=== PATIENT | female | born 1990 | race American Indian/Alaskan Native ===

== ENCOUNTER 2019-03-04 09:25 | Outpatient (CLI) | payer BC ==
[2019-03-04 10:35] LABS: Hematocrit 38.8 % (30.3-42.9); Hemoglobin 13.5 gm/dl (10.1-14.3); Mean Corpuscular HGB Conc 35 % (30-34); Mean Corpuscular Volume 91 fl (79-97); Platelet Count 203 K/mm3 (140-440); Red Blood Count 4.27 M/mm3 (3.65-5.03); Red Cell Distribution Width 13.3 % (13.2-15.2)
[2019-03-04 10:41] LABS: Alanine Aminotransferase 11 units/L (7-56); Albumin 4.3 g/dL (3.9-5); BUN/Creatinine Ratio 25; Blood Urea Nitrogen 15 mg/dL (7-17); Calcium 9.3 mg/dL (8.4-10.2); Hemolysis Index 6
[2019-03-04 11:20] LABS: Erythrocyte Sedimentation Rate 4 mm/Hr (0-20)
[2019-03-07 05:59] LABS: Albumin 4.2 g/dL (3.8-4.8); Gamma Globulin 0.8 g/dL (0.8-1.7)
[2019-03-07 12:30] LABS: Vitamin D, 25-OH, D2 <4 ng/mL
[2019-03-08 12:58] LABS: ANA Screen, IFA Negative (Negative)
== END 2019-03-04 09:26 | disposition home or self-care (01) ==
LOC: LAB 09:25
PROVIDERS: ATTEND Specialist
DX: G35 Multiple sclerosis (principal)
CPT/HCPCS: 36415; 80053; 82085; 82164; 82306; 82550; 82607; 83036; 83921; 84165; 84443; 84479; 84480; 85027; 85652; 86038; 86225; 86235; 86334; 86592; 86618; 87806